=== PATIENT | male | born 1950 | race Caucasian/White ===

== ENCOUNTER 2021-10-17 17:03 | Emergency (ER) | payer MEDICARE, SELFPAY ==
--- NOTE | 2021-10-17 17:24 | ED.EAR ---
HPI - Ear Problem General Chief complaint: Ear Stated complaint: Ear pain Time Seen by Provider: 10/17/21 17:24 Source: patient and RN notes reviewed Mode of arrival: ambulatory Limitations: no limitations History of Present Illness HPI Narrative: 71-year-old male presents with concern for left ear pressure. Reports he thinks it may be wax buildup. Reports he has history of having to have his ears cleaned out in the past. He denies any pain, drainage, upper respiratory symptoms. Denies fever. Reports decreased hearing on the left MD Complaint: ear pain Related Data Home Medications Medication Instructions Recorded Confirmed amlodipine 10/17/21 aspirin [Adult Aspirin EC Low 81 mg PO DAILY 10/17/21 10/17/21 Strength] atorvastatin 10/17/21 cyanocobalamin (vitamin B-12) 500 mcg PO DAILY 10/17/21 10/17/21 [Vitamin B-12] metformin mg 10/17/21 ramipril mg 10/17/21 Allergies Allergy/AdvReac Type Severity Reaction Status Date / Time No Known Allergies Allergy Unknown Verified 10/17/21 17:28 Review of Systems Review of Systems: CONSTITUTIONAL: Denies malaise, chills, sweats, or fever. EYES: Denies visual changes, redness, or discharge. ENT: Denies rhinorrhea, congestion, sinus pain, and sore throat. Reports left ear fullness CARDIOVASCULAR: Denies chest pain, palpitations, or edema. RESPIRATORY: Denies cough. Denies dyspnea. GASTROINTESTINAL: Denies abdominal pain, nausea, vomiting, diarrhea SKIN: Denies rash or itching. MUSCULOSKELETAL: Denies myalgia. NEUROLOGIC: Denies headache. All systems reviewed & are unremarkable except as noted in HPI and below PMFSH Comments At time of signature, agree with nursing past medical, surgical, social and family history. There is no relevant family history pertinent to the presenting complaint Exam Narrative: GENERAL: Well-appearing, well-nourished, and in no acute distress. HEAD: Normocephalic EYES: PERRLA, conjunctivae clear ENT: Nares clear, turbinates edematous, clear discharge. Mucous membranes moist. Right TM pearly conway with dull light reflex left TM not visible due to cerumen impaction; no tragal tenderness. NECK: Supple. No lymphadenopathy CHEST: Clear to auscultation, breath sounds equal. No wheezing, rhonchi, rales, or stridor. No respiratory distress, speaks in full sentences. HEART: Regular rate and rhythm. No murmur heard. SKIN: Warm, dry, no rash. NEURO: Alert and oriented x3. PSYCH: Normal mood and affect Course Course Emergency Course: Patient is aware of diagnosis, understands and agrees to treatment plan. Anticipatory guidance given. Patient agrees to follow-up as directed and is aware of reasons to seek care at the emergency department. Portions of this record may have been created with voice recognition software Level of Care: Express Care Visit Vital Signs Vital signs: Vital Signs Temperature 98.5 F 10/17/21 17:26 Pulse Rate 80 10/17/21 17:26 Respiratory Rate 16 10/17/21 17:26 Blood Pressure 153/88 H 10/17/21 17:26 Pulse Oximetry 99 10/17/21 17:26 Temperature 98.5 F 10/17/21 17:31 Pulse Rate 80 10/17/21 17:31 Respiratory Rate 16 10/17/21 17:31 Blood Pressure 153/88 H 10/17/21 17:31 Pulse Oximetry 99 10/17/21 17:31 Reviewed. Procedures Ear Wax Removal Left Ear: Ear Wax Removal Date: 10/17/21 Ear Wax Removal Time: 17:45 Cerumenolytic Used: 5-10% Sodium Bicarb solution Results: Re-examined: cerumen removed completely TM Examination: TM(s) intact, normal appearance Ear Canal Exam: atraumatic Patient Tolerated Procedure: well Complications: no problems Technique: ear canal irrigated and ear canal curetted Medical Decision Making MDM Narrative Medical decision making narrative: Differential diagnosis considered: Crowell virus, strep pharyngitis, allergic rhinitis, upper respiratory tract infection, sinusitis, rhinosinusitis, nasopharyngitis. viral
[2021-10-17 17:26] VITALS: BP 153/88; PULSE 80; RESP 16; TEMP 36.9; O2SAT 99
[2021-10-17 17:31] VITALS: BP 153/88; PULSE 80; RESP 16; TEMP 36.9; O2SAT 99
== END 2021-10-17 18:13 | disposition home or self-care (01) ==
PROVIDERS: Emergency Provider Nurse Practitioner
DX: H61.22 Impacted cerumen, left ear (principal); E78.00 Pure hypercholesterolemia, unspecified; I10 Essential (primary) hypertension; E11.9 Type 2 diabetes mellitus without complications; Z98.42 Cataract extraction status, left eye; Z98.41 Cataract extraction status, right eye
CPT/HCPCS: 69210; 99202; G0463

== ENCOUNTER 2022-11-20 09:43 | Outpatient (CLI) | payer MEDICARE, SELFPAY | END 2022-11-20 09:44 | disposition home or self-care (01) | LOC: ANHAUDIO 09:43 | DX: H90.3 Sensorineural hearing loss, bilateral (principal) | CPT/HCPCS: 92557; 92567 ==

== ENCOUNTER 2023-03-31 14:00 | Outpatient (RCR) | payer MEDICARE, SELFPAY | END 2023-03-31 23:59 | disposition home or self-care (01) | LOC: ANHAUDIO 14:00 | DX: Z46.1 Encounter for fitting and adjustment of hearing aid (principal) | CPT/HCPCS: 99199; V5261 ==

== ENCOUNTER 2024-04-21 16:08 | Emergency (ER) | payer MEDICARE, SELFPAY ==
[2024-04-21 16:22] VITALS: BP 137/81; PULSE 81; RESP 16; TEMP 36.9; O2SAT 99
--- NOTE | 2024-04-21 16:23 | ED.GENADULT ---
HPI - General Adult General Chief complaint: Wound/Laceration Stated complaint: CAT BITE L WRIST Source: patient Mode of arrival: ambulatory Limitations: no limitations History of Present Illness HPI narrative: 74 y/o male presented for c/o left wrist redness, swelling and pain following a cat bite 2 days ago. Endorses decreased ROM to the wrist and thumb due to pain. Reports swelling extends from the wrist to mid forearm. Denies active drainage, n/v/d/f/c. No treatment prior to arrival. He was bitten by his domestic cat who is utd on vaccines. Pt has AAA surgery to be scheduled next week. Follow with Cardiology at [facility]. Related Data Home Medications Medication Instructions Recorded Confirmed amlodipine 10 mg tablet 10 mg PO DAILY 10/17/21 04/21/24 aspirin 81 mg tablet,delayed 81 mg PO DAILY 10/17/21 04/21/24 release atorvastatin 80 mg tablet 80 mg PO DAILY 10/17/21 04/21/24 cyanocobalamin (vitamin B-12) 500 500 mcg PO DAILY 10/17/21 04/21/24 mcg tablet (Vitamin B-12) metformin 1,000 mg tablet 1,000 mg PO BID 10/17/21 04/21/24 ramipril 10 mg capsule 10 mg PO DAILY 10/17/21 04/21/24 Allergies Allergy/AdvReac Type Severity Reaction Status Date / Time No Known Allergies Allergy Unknown Verified 04/21/24 16:18 Review of Systems Review of Systems: CONSTITUTIONAL: Denies body aches, fever, chills, or sweats. EYES: Denies visual changes, redness, or discharge. ENT: Denies rhinorrhea, congestion CARDIOVASCULAR: Denies chest pain, palpitations, or edema. RESPIRATORY: Denies cough or dyspnea. GASTROINTESTINAL: Denies abdominal pain, nausea, vomiting, or diarrhea. SKIN: per HPI MUSCULOSKELETAL: Denies back pain, joint pain, or myalgia. NEUROLOGIC: Denies headache, numbness, tingling, or weakness. [facility] Past Medical History Medical History (Updated 04/21/24 @ 16:57 by Yi Ryan, ROJAS) Abdominal aortic aneurysm (AAA) Comments At time of signature, I have reviewed and agree with nursing past medical, surgical, social and family history unless otherwise noted. Please see nursing chart for further information. There is no relevant family history pertinent to the presenting complaint Exam Narrative: GENERAL: Well-appearing EYES: conjunctivae clear, and EOMI. ENT: Mucous membranes moist. Oropharynx without edema, erythema or lesions. NECK: Supple. No lymphadenopathy CHEST: Clear to auscultation. HEART: Regular rate and rhythm. SKIN: Warm, dry. Left volar wrist with 2 puncture sites over distal radial and ulnar aspects of wrist; 12x6cm area of swelling and erythema extending to mid forearm, streaking extends to AC. Decreased ROM at wrist and thumb. Cap refill <3 seconds. Radial pulse palpable. NEURO: Alert and oriented x3. Course Course Emergency Course: Patient is aware of diagnosis, understands and agrees to treatment plan. Anticipatory guidance given. Patient agrees to follow-up as directed and is aware of reasons to seek care at the emergency department. Portions of this record may have been created with voice recognition software Level of Care: Express Care Visit Vital Signs Vital signs: Reviewed Transfer Transfered to: [facility] Transportation: Other (Private vehicle) Transfer rationale: Pt is agreeable to transfer. Requests transfer to [facility] via private vehicle. Risks of transportation reviewed with pt including injury, worsening of condition and . v/u. will be driving pt; Report called to hospital, spoke with Dr Ambrosio, accepting physician. Pt is in stable condition at time of transfer. Advised to remain NPO and go directly to the hospital. Medical Decision Making MDM Narrative Medical decision making narrative: Pt following an untreated cat bite to left wrist with decreased ROM at wrist. Given his pending AAA surgery, he is advised ER transfer. Requests [facility]. Differential Diagnosis Differential Diagnosis: cat bite, cellulitis, tenosynovitis
== END 2024-04-21 16:43 | disposition short-term general hospital (02) ==
PROVIDERS: Emergency Provider Nurse Practitioner Family
DX: S61.532A Puncture wound without foreign body of left wrist, initial encounter (principal); W55.01XA Bitten by cat, initial encounter; Z79.82 Long term (current) use of aspirin
CPT/HCPCS: 99212; G0463

== ENCOUNTER 2024-04-21 17:02 | Inpatient (IN) | payer MEDICARE, SELFPAY ==
--- NOTE | ~2024-04-21 | XR_ITS ---
EXAM: XR wrist LT min 3V DATE: 04/21/2024 17:51 HISTORY: cat bite, r/o fb/gas . COMPARISON: None available. FINDINGS: Normal mineralization. No fracture or dislocation. No lytic or blastic lesion. Joint space s are maintained. Small calcific/ossific fragment adjacent to the ulnar styloid may represent an old ulnar styloid fracture fragment. Small calcific/ossific fragment adjacent to the pisiform bone may re present soft tissue calcification or old fracture fragment. No erosion or periosteal change. Soft tis bret swelling over the distal and anterior forearm. IMPRESSION: No acute osseous finding in the left wrist. Forearm soft tissue swelling, without subcuta neous gas or suspicious radiopacity. Reviewed, dictated and finalized at location K. IMPRESSION: No acute osseous finding in the left wrist. Forearm soft tissue swe lling, without subcutaneous gas or suspicious radiopacity.
[2024-04-21 17:19] VITALS: BP 127/84; PULSE 88; RESP 15; TEMP 36.6; O2SAT 99
--- NOTE | 2024-04-21 17:23 | ED.WOUNDLAC ---
HPI - Wound/Laceration General Chief Complaint: Wound/Laceration <PATTIE Lopez Last Filed: 04/21/24 17:34> Stated Complaint: CAT BITE - LEFT WRIST <PATTIE Lopez Last Filed: 04/21/24 17:34> Time Seen by Provider: 04/21/24 17:23 <PATTIE Lopez Last Filed: 04/21/24 17:34> Focused HPI: Patient is a 74 y/o male who presents to the ED with c/o a cat bite to his left wrist. Patient reports he was bit by his house cat 2 days ago in his left wrist. Has since developed worsening pain, swelling, redness throughout the wrist and forearm. Cat is UTD on its vaccines. It is an indoor cat. Patient unsure of last tetanus shot, at least 2013. Patient denies fevers, numbness. Was seen at an urgent care prior to arrival and sent here for further evaluation. Patient states he underwent cardiac stress testing today for surgery that is supposed to be scheduled for next week at [facility] for AAA repair (approx 7cm). GENERAL: Elderly, well-nourished, and in no acute distress. HEAD: Normocephalic, atraumatic. CHEST: Clear to auscultation. ?No respiratory distress. HEART: Regular rate and rhythm.?Radial pulses intact MSK: 2 puncture wounds to volar aspect of L wrist with scabbing present, diffuse swelling throughout volar aspect with erythema and warmth, extending to approx mid forearm. Sensation intact. Focal TTP. No fluctuance appreciated. NEURO: ?Alert and oriented x3. Patient screened in triage and initial orders placed.? ?Additional care and disposition to be based upon?diagnostic testing and treatment. <PATTIE Lopez Last Filed: 04/21/24 17:34> Source: patient <PATTIE Lopez Filed: 04/21/24 17:34> Mode of arrival: ambulatory <PATTIE Lopez Last Filed: 04/21/24 17:34> Limitations: no limitations <PATTIE Lopez Filed: 04/21/24 17:34> Related Data Home Medications: Home Medications Medication Instructions Recorded Confirmed amlodipine 10 mg tablet 10 mg PO DAILY 10/17/21 04/21/24 aspirin 81 mg tablet,delayed 81 mg PO DAILY 10/17/21 04/21/24 release atorvastatin 80 mg tablet 80 mg PO DAILY 10/17/21 04/21/24 cyanocobalamin (vitamin B-12) 500 500 mcg PO DAILY 10/17/21 04/21/24 mcg tablet (Vitamin B-12) metformin 1,000 mg tablet 1,000 mg PO BID 10/17/21 04/21/24 ramipril 10 mg capsule 10 mg PO DAILY 10/17/21 04/21/24 <Amparo Rodriguez PA-C - Last Filed: 04/21/24 17:34> Allergies/Adverse Reactions: Allergies Allergy/AdvReac Type Severity Reaction Status Date / Time No Known Allergies Allergy Unknown Verified 04/21/24 17:23 <Amparo Rodriguez PA-C - Last Filed: 04/21/24 17:34> COUNT INCLUDES THE [facility] Past Medical History Medical History: Medical History (Updated 04/21/24 @ 19:12 by Marcello Clarke PA-C) Abdominal aortic aneurysm (AAA) <Amparo Rodriguez PA-C - Last Filed: 04/21/24 17:34> Exam Narrative: GENERAL: Well-appearing, well-nourished, and in no acute distress. HEAD: Normocephalic, atraumatic. EYES: PERRLA and EOMI. ENT: Nares clear, no rhinorrhea or epistaxis. Mucous membranes moist. Oropharynx without tonsillar hypertrophy exudate or other lesions. NECK: Supple. No adenopathy or masses. CHEST: No respiratory distress. Clear to auscultation. No wheezes rales or rhonchi HEART: Regular rate and rhythm. No murmur heard. Normal peripheral pulses. ABDOMEN: Soft, nontender, nondistended, normal active bowel sounds. MSK: Normal range of motion. No edema. SKIN: RUE: benign LUE: Moderate erythema and swelling to the volar and lateral left wrist. Tender to palpation. No focal fluctuance. No streaking to the proximal arm NEURO: Alert and oriented x4. No focal deficits. PSYCH: Normal mood and affect. <Marcello Clarke PA-C - Last Filed: 04/21/24 19:25> Course WAREHOUSE ORDER FILLER/PA Physician Supervision This visit was performed by both a physician and an APC. I perf
[2024-04-21] MEDS: TETANUS,DIPHTHERIA,AC PERTUSSIS ADULT (0.5 ML) BOOSTRIX IM (17:41)
[2024-04-21] MEDS: HYDROcodone/acetaminophen (*CRX) 5-325 MG TABLET 1 TAB PO (17:42)
--- NOTE | 2024-04-21 17:43 | PC.NURSE ---
Pt given hand out on boostrix vaccine
[2024-04-21 17:48] LABS: Basophils Absolute Auto 0.1 K/mm3 (0.0-0.1); Basophils Percent Auto 0.4 % (0.2-1.2); Eosinophils Absolute Auto 0.1 K/mm3 (0-0.3); Hematocrit 39.1 % (42.0-52.0); Hemoglobin 12.9 g/dL (14.0-18.0); Immature Granulocyte Absolute 0.06 K/mm3 (0.00-0.031); Immature Granulocyte Percent A 0.4 % (0-0.5); Lymphocytes Absolute Auto 1.45 K/mm3 (0.9-3.2); Lymphocytes Percent Auto 10.8 % (18.3-44.2); Mean Corpuscular Hemoglobin 28.2 pg (26-34); Mean Corpuscular Volume 85.6 fl (80-100); Mean Platelet Volume 9.3 fl (7.4-10.4); Monocytes Absolute Auto 1.2 K/mm3 (0.1-0.6); Monocytes Percent Auto 9.1 % (2.6-8.5); Neutrophils Absolute Auto 10.5 K/mm3 (1.3-6.7); Neutrophils Percent Auto 78.3 % (45.5-73.1); Platelet Count Result 281 k/mm3 (150-375); Red Blood Count 4.57 M/mm3 (4.6-6.20); Red Cell Distribution Width 15.3 % (11.5-14.5); White Blood Count 13.5 K/mm3 (4.5-10.0)
[2024-04-21 18:07] LABS: Lactic Acid Reflex 1.2 mmol/L (0.7-2.0)
[2024-04-21 18:10] LABS: Alanine Aminotransferase 8 U/L (6-50); Albumin Level 4.6 g/dL (3.5-5.1); Alkaline Phosphatase 71 U/L (38-126); Anion Gap 9 mmol/L (4-12); Aspartate Amino Transferase 21 U/L (17-59); Bilirubin,Total 1.2 mg/dL (0.2-1.3); Blood Urea Nitrogen 26 mg/dL (9-20); CRP 6.7 mg/dL (<1.0); Calcium 9.1 mg/dL (8.4-10.2); Carbon Dioxide 24 mmol/L (22-30); Chloride 104 mmol/L (98-107); Estimated CRCL calculation 48 ml/min; Estimated Glomerular Filt Rate > 60; Glucose 175 mg/dL (65-110); Potassium 4.1 mmol/L (3.4-5.0); Sodium 137 mmol/L (137-145)
[2024-04-21 18:36] LABS: Erythrocyte Sedimentation Rate 38 mm/hr (0-20)
[2024-04-21] MEDS: AMPICILLIN SULB 3 GM/NS 100 ML 3 GM/100 ML VIAL IVPB (19:21)
[2024-04-21 20:56] VITALS: BP 131/67; PULSE 82; RESP 18; TEMP 36.3; O2SAT 97
[2024-04-21 20:57] VITALS: BMI 19.8
--- NOTE | 2024-04-21 21:12 | ADMGEN ---
This patient, Elbert Cano, was admitted to Medical Room 349-01. Patient/family oriented to hospital policies and general routines including ID bracelet, bed and alarms, visiting hours, pain management, procedures, bathroom and other care routines, personal items, smoking policy, room service/diet, and visiting hours. Information on how to activate the Rapid Response Team has been discussed. Patient/Family are encouraged to report perceived risks to care and to ask questions if they do not understand what they are told or what they should do.
[2024-04-21] MEDS: SODIUM CHLORIDE 0.9% IV 1,000 ML 75 ML IV CONT (21:18)
--- NOTE | 2024-04-21 21:18 | PM.IMHP ---
H&P: HPI History of Present Illness Date/Time: 04/21/24 21:18 Chief Complaint: Cat bite to left wrist Narrative: This is a 74-year-old male patient who came to the emergency room with complaints of left breast redness, swelling, and pain. The patient stated that he was bit by his own cat approximately 2-3 days ago. The redness has continue to extend to his left forearm. There are 2 puncture wounds but no drainage was noted. The patient has not received any outpatient therapy for this cat bite. The patient stated that the CT vaccines are all up-to-date. The patient is concerned about being admitted today since he is going for AAA surgery next week at [facility]. His white count is noted to be 13.5. His H&H is 12.9 and 39.1. Neutrophil percentage is 78.3. Lymph is 10.8. ESR is 38. His blood glucose is 175. C reactive protein is 6.7. The patient was started on Unasyn. He was also given a tetanus vaccine in the emergency room. The patient is being admitted to observation status on the date of service of 04/21/2024 Review of Systems Review of Systems: All systems reviewed & are unremarkable except as noted in HPI and below Constitutional: Constitutional: Reports as per HPI and Reports no additional constitutional complaints Eyes: Eyes: Reports as per HPI and Reports no additional eye complaints ENT: Reports system reviewed and no additional complaints, except as documented and Reports Normal hearing present Cardiovascular: Cardiovascular: Reports no additional cardiovascular complaints Comments: He has a history of having a AAA that is over 7 cm Respiratory: Respiratory: Reports no additional respiratory complaints and Reports no additional respiratory complaints Gastrointestinal: Gastrointestinal: Reports as per HPI and Reports no additional gastrointestinal complaints Musculoskeletal: Musculoskeletal: Reports no additional musculoskeletal complaints Integumentary/Breasts: Skin/Breast: Reports system reviewed and no additional complaints, except as docu and Reports as per HPI Comments: Cat bite to left wrist that extends to the left mid arm with redness, swelling and tenderness Neurologic: Reports system reviewed and no additional complaints, except as documented, Reports as per HPI and Reports Normal hearing present Psychiatric: Psychiatric: Reports no additional psychiatric complaints and Reports as per HPI Endocrine: Endocrine: Reports no additional endocrine complaints (History of diabetes with the last A1c being 6.7) Hematologic/Lymphatic: Hematologic/Lymphatic: Reports no additional hematologic/lymphatic complaints Allergic/Immunologic: Allergic/Immunologic: Reports no additional allergic/immunologic complaints [facility] Past Medical History Medical History (Updated 04/21/24 @ 21:23 by Almaz Lezama NP) Abdominal aortic aneurysm (AAA) DM2 (diabetes mellitus, type 2) Hyperlipidemia Hypertension Surgical History Surgical History (Updated 04/21/24 @ 21:23 by Almaz Lezama NP) History of cataract surgery History of tonsillectomy and adenoidectomy Family History Family History Daughter Cerebrovascular accident Mother Diabetes mellitus Renal failure Sibling Diabetes mellitus Father Dementia Social History Social History (Updated 04/21/24 @ 21:24 by Almaz Lezama NP) Social History: The patient lives with his . He has 2 daughters. He has 2 cats. 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 His is the designated power city attorney and he is designated as a full code. Alcohol intake: current Drinks per week: 2 Substance use: never Do You Feel Safe in your Home?: Yes Lack of Transportation: No Lack of Food: Never True Current Housing: I Have Housing Concerned About Future Housing: No Difficulty Paying Gas/Electric Bills: No Difficulty Paying for Meds: No Currently Unemployed: No
[2024-04-22] MEDS: HYDROcodone/acetaminophen (*CRX) 5-325 MG TABLET 1 TAB PO ×3 (00:05→21:31)
[2024-04-22 00:09] LABS: Glucose Point of Care 228 mg/dl (65-105)
[2024-04-22] MEDS: AMPICILLIN SULB 3 GM/NS 100 ML 3 GM/100 ML VIAL IVPB ×4 (03:26→21:32)
[2024-04-22 06:00] VITALS: BP 148/87; PULSE 80; RESP 16; TEMP 37.4; O2SAT 95
[2024-04-22 08:05] LABS: Glucose Point of Care 134 mg/dl (65-105)
[2024-04-22] MEDS: ATORVASTATIN 40 MG TABLET 80 MG PO (08:58)
[2024-04-22] MEDS: metFORMIN HCL 500 MG TABLET 1000 MG PO ×2 (08:58→17:40)
[2024-04-22] MEDS: ASPIRIN 81 MG ENTERIC TABLET PO (08:59)
[2024-04-22] MEDS: CYANOCOBALAMIN 500 MCG TABLET PO (08:59)
[2024-04-22] MEDS: amLODIPine BESYLATE 10 MG TABLET PO (08:59)
[2024-04-22] MEDS: ramipriL 5 MG CAPSULE 10 MG PO (09:00)
[2024-04-22] MEDS: SODIUM CHLORIDE 0.9% IV 1,000 ML 75 ML IV CONT (11:45)
[2024-04-22 12:18] LABS: Glucose Point of Care 137 mg/dl (65-105)
--- NOTE | 2024-04-22 12:50 | PM.IMPN ---
Progress Note: A&P Assessment and Plan (1) Cat bite of left wrist: Code(s): S61.552A - Open bite of left wrist, initial encounter; W55.01XA - Bitten by cat, initial encounter Status: Acute Assessment and Plan: Blood cultures are pending. Continue with IV Unasyn 4 times a day. Patient has redness, edema, and tenderness to the left forearm from his fingertips to his left mid arm. - area is marked for monitoring (2) Hypertension: Code(s): I10 - Essential (primary) hypertension Status: Acute Assessment and Plan: Continue with patient's home medications of amlodipine and ramipril (3) DM2 (diabetes mellitus, type 2): Code(s): E11.9 - Type 2 diabetes mellitus without complications Status: Acute Assessment and Plan: Continue with Accu-Cheks AC and HS with sliding scale insulin. Continue with metformin. Patient stated his last A1c was within the last 2 months and was round 6.7. Continue with diabetic consistent carbohydrate diet. (4) Abdominal aortic aneurysm (AAA): Code(s): I71.40 - Abdominal aortic aneurysm, without rupture, unspecified Status: Acute Assessment and Plan: The patient stated that his triple a is greater than 7 cm and is planning surgery next week at [facility]. (5) Hyperlipidemia: Code(s): E78.5 - Hyperlipidemia, unspecified Status: Acute Assessment and Plan: Continue with atorvastatin Plan See above Time Spent With Patient Time with patient: Greater than 35 minutes Subjective Date/time seen: 04/22/24 12:50 Interval history: Cat bite to left wrist Narrative retrieved from H/P: This is a 74-year-old male patient who came to the emergency room with complaints of left breast redness, swelling, and pain. The patient stated that he was bit by his own cat approximately 2-3 days ago. The redness has continue to extend to his left forearm. There are 2 puncture wounds but no drainage was noted. The patient has not received any outpatient therapy for this cat bite. The patient stated that the CT vaccines are all up-to-date. The patient is concerned about being admitted today since he is going for AAA surgery next week at [facility]. His white count is noted to be 13.5. His H&H is 12.9 and 39.1. Neutrophil percentage is 78.3. Lymph is 10.8. ESR is 38. His blood glucose is 175. C reactive protein is 6.7. The patient was started on Unasyn. He was also given a tetanus vaccine in the emergency room. The patient is being admitted to observation status on the date of service of 04/21/202404/22- pt is seen and exmained he is doing well- reports some pain with movement but tolerable at this point. redness borderers are marked for monitoring. Review of Systems Review of Systems: All systems reviewed & are unremarkable except as noted in HPI and below Constitutional: Constitutional: Denies chills Eyes: Eyes: Denies blurry vision ENT: Reports system reviewed and no additional complaints, except as documented and Reports Normal hearing present Cardiovascular: Cardiovascular: Denies chest pain Respiratory: Respiratory: Denies chest congestion and Denies cough Gastrointestinal: Gastrointestinal: Denies abdominal pain Musculoskeletal: Musculoskeletal: Denies back pain Integumentary/Breasts: Skin/Breast: Reports system reviewed and no additional complaints, except as docu and Reports as per HPI Comments: redness and swelling to lt hand Neurologic: Denies headache(s) Psychiatric: Psychiatric: Denies confusion Endocrine: Endocrine: Reports no additional endocrine complaints (History of diabetes with the last A1c being 6.7) Hematologic/Lymphatic: Hematologic/Lymphatic: Reports no additional hematologic/lymphatic complaints Allergic/Immunologic: Allergic/Immunologic: Reports no additional allergic/immunologic complaints Exam Const: General: comfortable Eyes: General: appearance normal, both eyes
[2024-04-22 14:00] VITALS: BP 132/72; PULSE 84; RESP 18; TEMP 36.8; O2SAT 96
[2024-04-22 16:49] LABS: Glucose Point of Care 184 mg/dl (65-105)
[2024-04-22] MEDS: ramipriL 5 MG CAPSULE PO (17:41)
[2024-04-22 20:39] VITALS: BP 128/63; PULSE 69; RESP 18; TEMP 36.8; O2SAT 97
[2024-04-22 21:03] LABS: Glucose Point of Care 171 mg/dl (65-105)
[2024-04-23] MEDS: SODIUM CHLORIDE 0.9% IV 1,000 ML 75 ML IV CONT ×2 (02:35→17:48)
[2024-04-23] MEDS: AMPICILLIN SULB 3 GM/NS 100 ML 3 GM/100 ML VIAL IVPB ×4 (02:38→19:28)
[2024-04-23 04:17] VITALS: BP 119/58; PULSE 71; RESP 16; TEMP 36.6; O2SAT 93
[2024-04-23 08:21] LABS: Glucose Point of Care 126 mg/dl (65-105)
[2024-04-23] MEDS: CYANOCOBALAMIN 500 MCG TABLET PO (08:21)
[2024-04-23] MEDS: ASPIRIN 81 MG ENTERIC TABLET PO (08:21)
[2024-04-23] MEDS: metFORMIN HCL 500 MG TABLET 1000 MG PO ×2 (08:21→17:47)
[2024-04-23] MEDS: amLODIPine BESYLATE 10 MG TABLET PO (08:22)
[2024-04-23] MEDS: ramipriL 5 MG CAPSULE 10 MG PO (08:22)
[2024-04-23] MEDS: ATORVASTATIN 40 MG TABLET 80 MG PO (08:22)
--- NOTE | 2024-04-23 09:22 | PM.IMPN ---
Progress Note: A&P Assessment and Plan (1) Cat bite of left wrist: Code(s): S61.552A - Open bite of left wrist, initial encounter; W55.01XA - Bitten by cat, initial encounter Status: Acute Assessment and Plan: Blood cultures are pending. Continue with IV Unasyn 4 times a day. Patient has redness, edema, and tenderness to the left forearm from his fingertips to his left mid arm. - area is marked for monitoring - some improvement to anterior and slight worsening to posterior forearm- could be just positional- will monitor for now (2) Hypertension: Code(s): I10 - Essential (primary) hypertension Status: Acute Assessment and Plan: Continue with patient's home medications of amlodipine and ramipril (3) DM2 (diabetes mellitus, type 2): Code(s): E11.9 - Type 2 diabetes mellitus without complications Status: Acute Assessment and Plan: Continue with Accu-Cheks AC and HS with sliding scale insulin. Continue with metformin. Patient stated his last A1c was within the last 2 months and was round 6.7. Continue with diabetic consistent carbohydrate diet. (4) Abdominal aortic aneurysm (AAA): Code(s): I71.40 - Abdominal aortic aneurysm, without rupture, unspecified Status: Acute Assessment and Plan: The patient stated that his triple a is greater than 7 cm and is planning surgery next week at [facility]. (5) Hyperlipidemia: Code(s): E78.5 - Hyperlipidemia, unspecified Status: Acute Assessment and Plan: Continue with atorvastatin Plan See above Time Spent With Patient Time with patient: Greater than 35 minutes Subjective Date/time seen: 04/23/24 09:22 Interval history: Cat bite to left wrist Narrative retrieved from H/P: This is a 74-year-old male patient who came to the emergency room with complaints of left breast redness, swelling, and pain. The patient stated that he was bit by his own cat approximately 2-3 days ago. The redness has continue to extend to his left forearm. There are 2 puncture wounds but no drainage was noted. The patient has not received any outpatient therapy for this cat bite. The patient stated that the CT vaccines are all up-to-date. The patient is concerned about being admitted today since he is going for AAA surgery next week at [facility]. His white count is noted to be 13.5. His H&H is 12.9 and 39.1. Neutrophil percentage is 78.3. Lymph is 10.8. ESR is 38. His blood glucose is 175. C reactive protein is 6.7. The patient was started on Unasyn. He was also given a tetanus vaccine in the emergency room. The patient is being admitted to observation status on the date of service of 04/21/202404/22- pt is seen and examined he is doing well- reports some pain with movement but tolerable at this point. redness borderers are marked for monitoring. 04/23- pt is seen this am. doing well- redness slowly improving. He is able to move his fingers a little bit more but they are still stiff. he denies n/v/d. Review of Systems Review of Systems: All systems reviewed & are unremarkable except as noted in HPI and below Constitutional: Constitutional: Reports as per HPI, Reports no additional constitutional complaints, Denies chills and Denies headache(s) Eyes: Eyes: Reports as per HPI, Reports no additional eye complaints and Denies blurry vision ENT: Reports system reviewed and no additional complaints, except as documented, Reports Normal hearing present and Denies headache(s) Cardiovascular: Cardiovascular: Reports no additional cardiovascular complaints and Denies chest pain Respiratory: Respiratory: Reports no additional respiratory complaints, Reports no additional respiratory complaints, Denies chest congestion and Denies cough Gastrointestinal: Gastrointestinal: Reports as per HPI, Reports no additional gastrointestinal complaints and Denies abdominal pain Musculoskeletal: Musculoskeletal: Reports no ad
[2024-04-23 10:07] LABS: Hematocrit 36.8 % (42.0-52.0); Hemoglobin 12.1 g/dL (14.0-18.0); Mean Corpuscular HGB Conc 32.9 g/dl (32-36); Mean Corpuscular Hemoglobin 28.5 pg (26-34); Mean Corpuscular Volume 86.8 fl (80-100); Mean Platelet Volume 9.2 fl (7.4-10.4); Platelet Count Result 238 k/mm3 (150-375); Red Blood Count 4.24 M/mm3 (4.6-6.20); Red Cell Distribution Width 15.3 % (11.5-14.5); White Blood Count 9.3 K/mm3 (4.5-10.0)
[2024-04-23 10:20] LABS: Anion Gap 11 mmol/L (4-12); Blood Urea Nitrogen 18 mg/dL (9-20); Calcium 8.6 mg/dL (8.4-10.2); Carbon Dioxide 18 mmol/L (22-30); Chloride 112 mmol/L (98-107); Estimated CRCL calculation 45 ml/min; Estimated Glomerular Filt Rate > 60; Glucose 129 mg/dL (65-110); Potassium 4.2 mmol/L (3.4-5.0); Sodium 141 mmol/L (137-145)
[2024-04-23 11:29] LABS: Glucose Point of Care 137 mg/dl (65-105)
[2024-04-23 13:41] VITALS: BP 108/57; PULSE 64; RESP 18; TEMP 36.9; O2SAT 97
[2024-04-23 17:10] LABS: Glucose Point of Care 191 mg/dl (65-105)
[2024-04-23] MEDS: SACCHAROMYCES BOULARDII 250 MG CAPSULE PO (17:47)
[2024-04-23] MEDS: ramipriL 5 MG CAPSULE PO (17:47)
[2024-04-23] MEDS: HYDROcodone/acetaminophen (*CRX) 5-325 MG TABLET 1 TAB PO (19:27)
[2024-04-23 21:41] VITALS: BP 119/64; PULSE 68; RESP 18; TEMP 36.8; O2SAT 94
[2024-04-24 04:08] VITALS: BP 139/78; PULSE 71; RESP 18; TEMP 36.8; O2SAT 94
[2024-04-24] MEDS: AMPICILLIN SULB 3 GM/NS 100 ML 3 GM/100 ML VIAL IVPB ×4 (04:09→20:48)
[2024-04-24] MEDS: HYDROcodone/acetaminophen (*CRX) 5-325 MG TABLET 1 TAB PO ×2 (04:50→20:52)
[2024-04-24 05:52] LABS: Hematocrit 32.8 % (42.0-52.0); Hemoglobin 10.5 g/dL (14.0-18.0); Mean Corpuscular Hemoglobin 27.7 pg (26-34); Mean Corpuscular Volume 86.5 fl (80-100); Platelet Count Result 220 k/mm3 (150-375); Red Blood Count 3.79 M/mm3 (4.6-6.20); Red Cell Distribution Width 14.9 % (11.5-14.5); White Blood Count 8.5 K/mm3 (4.5-10.0)
[2024-04-24 06:04] LABS: Anion Gap 7 mmol/L (4-12); Blood Urea Nitrogen 17 mg/dL (9-20); Calcium 8.2 mg/dL (8.4-10.2); Carbon Dioxide 23 mmol/L (22-30); Chloride 110 mmol/L (98-107); Estimated CRCL calculation 41 ml/min; Estimated Glomerular Filt Rate 59; Glucose 127 mg/dL (65-110); Potassium 3.9 mmol/L (3.4-5.0); Sodium 140 mmol/L (137-145)
[2024-04-24] MEDS: SODIUM CHLORIDE 0.9% IV 1,000 ML 75 ML IV CONT (06:30)
--- NOTE | 2024-04-24 07:47 | PM.IMPN ---
Progress Note: A&P Assessment and Plan (1) Cat bite of left wrist: Code(s): S61.552A - Open bite of left wrist, initial encounter; W55.01XA - Bitten by cat, initial encounter Status: Acute Assessment and Plan: Blood cultures are pending. Continue with IV Unasyn 4 times a day. Patient has redness, edema, and tenderness to the left forearm from his fingertips to his left mid arm. - area is marked for monitoring - some improvement to anterior and slight worsening to posterior forearm- could be just positional- will monitor for now - continue IV antibiotics- will switch to PO and anticipate discharge home if stable (2) Hypertension: Code(s): I10 - Essential (primary) hypertension Status: Acute Assessment and Plan: Continue with patient's home medications of amlodipine and ramipril (3) DM2 (diabetes mellitus, type 2): Code(s): E11.9 - Type 2 diabetes mellitus without complications Status: Acute Assessment and Plan: Continue with Accu-Cheks AC and HS with sliding scale insulin. Continue with metformin. Patient stated his last A1c was within the last 2 months and was round 6.7. Continue with diabetic consistent carbohydrate diet. (4) Abdominal aortic aneurysm (AAA): Code(s): I71.40 - Abdominal aortic aneurysm, without rupture, unspecified Status: Acute Assessment and Plan: The patient stated that his triple a is greater than 7 cm and is planning surgery next week at [facility]. (5) Hyperlipidemia: Code(s): E78.5 - Hyperlipidemia, unspecified Status: Acute Assessment and Plan: Continue with atorvastatin Plan See above Time Spent With Patient Time with patient: Greater than 35 minutes Subjective Date/time seen: 04/24/24 07:47 Interval history: Cat bite to left wrist Narrative retrieved from H/P: This is a 74-year-old male patient who came to the emergency room with complaints of left breast redness, swelling, and pain. The patient stated that he was bit by his own cat approximately 2-3 days ago. The redness has continue to extend to his left forearm. There are 2 puncture wounds but no drainage was noted. The patient has not received any outpatient therapy for this cat bite. The patient stated that the CT vaccines are all up-to-date. The patient is concerned about being admitted today since he is going for AAA surgery next week at [facility]. His white count is noted to be 13.5. His H&H is 12.9 and 39.1. Neutrophil percentage is 78.3. Lymph is 10.8. ESR is 38. His blood glucose is 175. C reactive protein is 6.7. The patient was started on Unasyn. He was also given a tetanus vaccine in the emergency room. The patient is being admitted to observation status on the date of service of 04/21/202404/22- pt is seen and examined he is doing well- reports some pain with movement but tolerable at this point. redness borderers are marked for monitoring. 04/23- pt is seen this am. doing well- redness slowly improving. He is able to move his fingers a little bit more but they are still stiff. he denies n/v/d. 04/24- seen and examined this am- able to move her hand a little more today- if continues to improve- anticipate discharge home. Reports pain with hand moving. NO n/v/d Review of Systems Constitutional: Constitutional: Denies chills and Denies headache(s) Eyes: Eyes: Denies blurry vision ENT: Reports Normal hearing present and Denies headache(s) Cardiovascular: Cardiovascular: Denies chest pain Respiratory: Respiratory: Denies chest congestion and Denies cough Gastrointestinal: Gastrointestinal: Denies abdominal pain Genitourinary: Genitourinary: Denies hematuria Musculoskeletal: Musculoskeletal: Denies back pain Neurologic: Reports Normal hearing present, Denies confusion and Denies headache(s) Psychiatric: Psychiatric: Denies confusion Exam Const: General: cooperative, healthy appearing, comfortable, no ac
[2024-04-24 08:53] LABS: Glucose Point of Care 136 mg/dl (65-105)
[2024-04-24] MEDS: metFORMIN HCL 500 MG TABLET 1000 MG PO ×2 (09:10→16:30)
[2024-04-24] MEDS: ATORVASTATIN 40 MG TABLET 80 MG PO (09:11)
[2024-04-24] MEDS: amLODIPine BESYLATE 10 MG TABLET PO (09:11)
[2024-04-24] MEDS: ASPIRIN 81 MG ENTERIC TABLET PO (09:11)
[2024-04-24] MEDS: SACCHAROMYCES BOULARDII 250 MG CAPSULE PO ×3 (09:11→16:30)
[2024-04-24] MEDS: CYANOCOBALAMIN 500 MCG TABLET PO (09:11)
[2024-04-24] MEDS: ramipriL 5 MG CAPSULE 10 MG PO (09:11)
[2024-04-24 12:24] LABS: Glucose Point of Care 102 mg/dl (65-105)
[2024-04-24 14:00] VITALS: BP 122/64; PULSE 64; RESP 16; TEMP 36.8; O2SAT 97
[2024-04-24 17:17] LABS: Glucose Point of Care 157 mg/dl (65-105)
[2024-04-24] MEDS: ramipriL 5 MG CAPSULE PO (17:50)
[2024-04-24 21:40] VITALS: BP 135/65; PULSE 64; RESP 18; TEMP 36.2; O2SAT 96
[2024-04-25] MEDS: AMPICILLIN SULB 3 GM/NS 100 ML 3 GM/100 ML VIAL IVPB ×2 (02:05→08:28)
[2024-04-25 06:00] VITALS: BP 146/74; PULSE 67; RESP 18; TEMP 36.1; O2SAT 96
[2024-04-25 06:19] LABS: Glucose Point of Care 134 mg/dl (65-105)
[2024-04-25 07:52] LABS: Glucose Point of Care 120 mg/dl (65-105)
[2024-04-25] MEDS: ramipriL 5 MG CAPSULE 10 MG PO (08:28)
[2024-04-25] MEDS: amLODIPine BESYLATE 10 MG TABLET PO (08:28)
[2024-04-25] MEDS: SACCHAROMYCES BOULARDII 250 MG CAPSULE PO ×2 (08:28→12:10)
[2024-04-25] MEDS: ASPIRIN 81 MG ENTERIC TABLET PO (08:28)
[2024-04-25] MEDS: CYANOCOBALAMIN 500 MCG TABLET PO (08:28)
[2024-04-25] MEDS: metFORMIN HCL 500 MG TABLET 1000 MG PO (08:28)
[2024-04-25] MEDS: ATORVASTATIN 40 MG TABLET 80 MG PO (08:28)
[2024-04-25 09:33] LABS: Hematocrit 36.2 % (42.0-52.0); Mean Corpuscular HGB Conc 33.1 g/dl (32-36); Mean Corpuscular Hemoglobin 28.4 pg (26-34); Mean Corpuscular Volume 85.8 fl (80-100); Platelet Count Result 260 k/mm3 (150-375); Red Blood Count 4.22 M/mm3 (4.6-6.20); Red Cell Distribution Width 14.9 % (11.5-14.5); White Blood Count 8.7 K/mm3 (4.5-10.0)
[2024-04-25 09:50] LABS: Anion Gap 8 mmol/L (4-12); Blood Urea Nitrogen 15 mg/dL (9-20); Calcium 8.9 mg/dL (8.4-10.2); Carbon Dioxide 24 mmol/L (22-30); Chloride 108 mmol/L (98-107); Estimated CRCL calculation 49 ml/min; Estimated Glomerular Filt Rate > 60; Glucose 121 mg/dL (65-110); Potassium 4.2 mmol/L (3.4-5.0); Sodium 140 mmol/L (137-145)
[2024-04-25 12:08] LABS: Glucose Point of Care 89 mg/dl (65-105)
[2024-04-25] MEDS: AMOXICILLIN/CLAVULANATE K 875-125 MG TAB 1 TABLET PO (12:10)
--- NOTE | 2024-04-25 13:20 | PM.DS ---
DS: Admitting Diagnosis Discharge Date 04/25 Admitting Diagnosis cat bite DS: Discharge Diagnosis Discharge Diagnosis (1) Cat bite of left wrist: Code(s): S61.552A - Open bite of left wrist, initial encounter; W55.01XA - Bitten by cat, initial encounter Status: Acute Assessment and Plan: Blood cultures are pending. Continue with IV Unasyn 4 times a day. Patient has redness, edema, and tenderness to the left forearm from his fingertips to his left mid arm. - area is marked for monitoring - some improvement to anterior and slight worsening to posterior forearm- could be just positional- will monitor for now - continue IV antibiotics- will switch to PO and anticipate discharge home if stable (2) Hypertension: Code(s): I10 - Essential (primary) hypertension Status: Acute Assessment and Plan: Continue with patient's home medications of amlodipine and ramipril (3) DM2 (diabetes mellitus, type 2): Code(s): E11.9 - Type 2 diabetes mellitus without complications Status: Acute Assessment and Plan: Continue with Accu-Cheks AC and HS with sliding scale insulin. Continue with metformin. Patient stated his last A1c was within the last 2 months and was round 6.7. Continue with diabetic consistent carbohydrate diet. (4) Abdominal aortic aneurysm (AAA): Code(s): I71.40 - Abdominal aortic aneurysm, without rupture, unspecified Status: Acute Assessment and Plan: The patient stated that his triple a is greater than 7 cm and is planning surgery next week at [facility]. (5) Hyperlipidemia: Code(s): E78.5 - Hyperlipidemia, unspecified Status: Acute Assessment and Plan: Continue with atorvastatin (6) Cellulitis: Code(s): L03.90 - Cellulitis, unspecified Status: Acute Plan See above DS: Summary Hospital Course Hospital Course: Cat bite to left wrist This is a 74-year-old male patient who came to the emergency room with complaints of left breast redness, swelling, and pain. The patient stated that he was bit by his own cat approximately 2-3 days ago. The patient was started on Unasyn. He was also given a tetanus vaccine in the emergency room. antibiotics were switched to Augmentin on 04/25, he clinically improved and was discharged home with instructions to f/u with pcp within a week for re assessment. Status at Discharge Functional status at discharge: independent ambulation Overall status at discharge: patient is progressing back to baseline Time Spent with Patient Time attestation: Total time spent providing and/or coordinating discharge services: Time spent: Greater than 30 minutes Exam Const: General: cooperative, healthy appearing, comfortable, no acute distress, well developed, awake, Physically active, average body habitus and well nourished; No confusion Nutritional Appearance: average body habitus and well nourished Orientation/consciousness: oriented to person, oriented to place, oriented to time, patient oriented x3 and No confusion Limitations: no limitations HENMT: Head: normal to inspection, No palpable skull fracture present, normocephalic, atraumatic and abrasion Ears: hearing grossly normal bilaterally and external ears normal Face/Nose/Sinus: Normal external nose present and Normal nares present Other: He is able to hear me during our conversation however he typically wears hearing aids bilaterally and does not have them with him. Eyes: General: appearance normal, both eyes and all related structures Alignment and Position: alignment normal Eyelids: eyelids normal Pupils: Equal, round and reactive pupils present EOM: EOMs intact bilaterally Neck: Neck: normal visual inspection, full ROM, no lymphadenopathy, trachea midline and supple Chest: Chest palpation & inspection: normal inspection of the chest Resp: Effort & Inspection: normal respiratory effort Auscultation: clear to auscultation bilate
[2024-04-25 14:00] VITALS: BP 147/73; PULSE 80; RESP 18; TEMP 36.7; O2SAT 81
== END 2024-04-25 15:13 | disposition home or self-care (01) | DRG 605 ==
LOC: ANHED 19:11 → ANH3MED 21:13
PROVIDERS: Physician Assistant; Admitting Provider Internal Medicine; Emergency Provider Physician Assistant; Visit Provider Nurse Practitioner
DX: S61.552A Open bite of left wrist, initial encounter (principal); L03.114 Cellulitis of left upper limb; W55.01XA Bitten by cat, initial encounter; I10 Essential (primary) hypertension; E11.9 Type 2 diabetes mellitus without complications; I71.40 Abdominal aortic aneurysm, without rupture, unspecified; E78.5 Hyperlipidemia, unspecified; Z79.82 Long term (current) use of aspirin; Z79.84 Long term (current) use of oral hypoglycemic drugs
CPT/HCPCS: 36415; 73110; 80048; 80053; 82948; 83605; 85025; 85027; 85652; 86140; 87040; 90471; 90715; 96361; 96365; 96366; 99212; 99285; A9270; G0378; G0463; J0295; J7030